=== PATIENT | female | born 1970 | race Caucasian/White ===

== ENCOUNTER 2025-09-21 13:41 | Outpatient (AMB) | payer OTHER, SELFPAY ==
--- OUTSIDE RECORDS SUMMARY | 2024-06-10 03:00 | XMS_ITS ---
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 Encounter Location Date Provider Diagnosis [facility] [employer] [address] [address] 06/10/2024 SERVANDO WHALEN Encounter for gynecological examination [...] Follow Up: 1 Year, Reason: Y early Oyster Culturist Exam Provider Name:SERVANDO Hadley, 10/06/2025 03:00:00 PM, [facility], [address], [place], [address], Progress Notes * LISY CAGEDOB:[birth year] (55 yo F)Acc No.[id number]:06/10/2024 PROGRESS NOTES Patient: LISY TAPIA Provider: Caitlyn WHALEN MD :1970 A ge:53 Y S ex:Female Date:06/10/2024 Address:[address] [place], [place] [id number] Pcp:KIMBALL MD Subjective: * Chief Complaints: * 1 . 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 S he has been in state of good health since her last exam. She has the following concerns: S he has received the [employer] Covid-19 vaccine and booster x 2. R [...] and strength training. * ROS: A nnual Oyster Culturist Exam ROS: Bowel habit changes d enies. [...] recurrent, mild, Rheumatoid arthritis, unspecified, COVID-19. * Oyster Culturist History: G ravida/ Para 0 /0. S [...] no acute distress, well developed, well nourished, animal caregiver present in room. HEAD: n ormocephalic, atraumatic. [...] * Follow Up: 1 Year (Reason: Yearly Oyster Culturist Exam) * Images: Billing Information: * Visit Code: [id number] Preventive Care Est Pt. Age 40-64. 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 She has been in state of good health since her last exam. She has the following concerns: She has received the [employer] Covid-19 vaccine and booster x 2. Relationship [...] General Examination GENERAL APPEARANCE: in no ac [place] distress, well developed, well nourished, animal caregiver present in room HEAD: normocephalic, atrau matic [...]
--- OUTSIDE RECORDS SUMMARY | 2024-08-05 04:20 | XMS_ITS ---
Author Organization [facility] [employer] Address [address] [address] Care Team Providers Care Fraud Investigator Name Role Phone MD TORRES HOWARD Primary Care Provider SERVANDO Portillo Unavailable [phone] REASON FOR VISIT Annual ELECTRICAL LINE SPLICER Physical Encounters Encounter Location Date Provider Diagnosis [facility] [address] [address] 08/05/2024 SERVANDO WHALEN Encounter for gynecological examination (general) (routine) without abnormal findings Z01.419 ; Encounter for screening mammogram for malignant neoplasm of breast Z12.31 and Encounter for screening for infections with a predominantly sexual mode of transmission Z11.3 Assessments Encounter Date Diagnosis (ICD Code) Assessment Notes Treatment Notes Treatment Clinical Notes Section Notes 08/05/2024 Encounter for gynecological examination (general) (routine) without abnormal findings (ICD-10 - Z01.419) During the visit, the following areas of concern were addressed: Discussed stopping cervical cancer screening as per ASCCP guidelines. Advised continued annual pelvic exams. Patient encouraged to increase her level of exercise. SBE technique encouraged/tau ght. Patient reminded when annual mammogram is due. Patient encouraged to keep colon screening up to date. 08/05/2024 Encounter for screening mammogram for malignant neoplasm of breast (ICD-10 - Z12.31) 08/05/2024 Encounter for screening for infections with a predominantly sexual mode of transmission (ICD-10 - Z11.3) Plan Of Treatment Treatment Notes Assessment Notes Encounter for gynecological examination (general) (routine) without abnormal findings During the visit, the following areas of concern were addressed: Discussed stopping cervical cancer screening as per ASCCP guidelines. Advised continued annual pelvic exams. Patient encouraged to increase her level of exercise. SBE technique encouraged/taught. Patient reminded when annual mammogram is due. Patient encouraged to keep colon screening up to date. Pending Test Test Name Order Date MM Digital Screening Mammogram 3D 2023 Next Appt Details Follow Up: 1 Year, Reason: Y early Bartender Exam Provider Name:SERVANDO Caitlyn Hadley, 10/06/2025 03:00:00 PM, [address], [address], [place], [address], Progress Notes * LISY CAGEDOB:[birth year] (55 yo F)Acc No.[id number]:08/05/2024 PROGRESS NOTES Patient: LISY TAPIA Provider: Caitlyn WHALEN MD :1970 A ge:54 Y S ex:Female Date:08/05/2024 Address:[address] [place] [address] , [id number] Pcp:KIMBALL MD Subjective: * Chief Complaints: * 1 . 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 S he has been in state of good health since her last exam. She has the following concerns: S he has received the [employer] Covid-19 vaccine and booster x 2. R [...] colonoscopy. The last colonoscopy was in 2019. T he patient does* exercise. She exercises x 6 days/week by running and strength training. * ROS: A nnual Bartender Exam ROS: Bowel habit changes d enies. [...] sychiatric: Denies A nxiety. * Medical History: Objective: * Vitals: * Examination: G eneral Examination: GENERAL APPEARANCE: i n no acute distress, well developed, well nourished, safety trainer present in room. HEAD: n ormocephalic, atraumatic. [...] pink without abnormal discharge, lesions or masses, cervix, uterus and ovaries are surgically absent. NEUROLOGIC: alert and oriented, gait normal. PSYCH: [...] * Follow Up: 1 Year (Reason: Yearly Bartender Exam) * Images: Billing Information: * Visit Code: [id number] Preventive Care Est Pt. Age 40-64. 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 She has been in state of good health since her last exam. She has the following concerns: She has received the [employer] Covid-19 vaccine and booster x 2. Relationship [...] General Examination GENERAL APPEARANCE: in no ac [place] distress, well developed, well nourished, safety trainer present in room HEAD: normocephalic, atrau matic [...] pink without abnormal discharge, lesions or masses, cervix, uterus and ovaries are surgically absent
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
[2025-09-21 14:10] VITALS: BP 80/70; PULSE 69; O2SAT 99; BMI 21.7
--- OUTSIDE RECORDS SUMMARY | 2025-09-21 16:33 | XMS_ITS | Clinical Summary ---
Author Organization [facility] Address [address] [place] [address] Phone Care Team Providers Care Companion Name Role Phone Sharad Alvarez MD Primary Care Provider [phone] Allergies Active Allergy Reactions Criticality Noted Date Comments Sulfamethoxazole-Trimethoprim 2019 Ciprofloxacin 07/05/2020 Medications buPROPion (WELLBUTRIN) 100 MG immediate release tablet Take 100 mg by mouth daily. Active ipratropium-al buteroL (COMBIVENT RESPIMAT) 20-100 mcg/actuation Mist Inhale 1 puff into the lungs once as needed. Active folic acid (FOLVITE) 1 MG tablet TAKE 1 TABLET BY MOUTH EVERY DAY 90 tablet 3 5 Active methotrexate 2.5 MG Oral tablet Take 10 tablets (25 mg total) by mouth every 7 days. 120 tablet 3 5 Active ENBREL SURECLICK 50 mg/mL (1 mL) PnIj INJECT 1 PEN SUBCUTANEOUSLY WEEKLY 4 mL 3 5 Active Active Problems No known active problems Encounters Date Type Department Care Team Description 07/23/2025 Refill [facility] Rheumatology [address], [address] Floor, [address] [place] [address] Annia Cortez MD Medication Refill from Last 3 Months Family History Medical History Relation Comments COPD Father Heart failure Father Rheumatoid arthritis Father Relation Status Comments Father Social History Tobacco Use Types Packs/Day Years Used Date Smoking Tobacco: Never Smokeless Tobacco: Never Alcohol Use Standard Drinks/Week Comments Yes 0 (1 standard drink = 0.6 oz pur e alcohol) Child or Family Care Answer Date Record ed Do you have problems with on e of the following making it difficult for you to work, study, or receive health care? No 03/20/2025 Education Answer Date Recorded Are you interested in help w ith more adult education (for example, completing high school, GED, job training, learning the Latvian language, technical skills, or developing parenting skills)? No 03/20/2025 Are you concerned about learning? Not on file 03/20/2025 No 03/20/2025 Yes 03/20/2025 Food Answer Date Recorded Within the past 6 months we worried whether our food would run out before we got money to buy more. Never True 03/20/2025 Within the past 6 months the food we bought just didn't last and we didn't have enough money to get more. Never True Residential Stability Answer Date Recor ded What is your housing situation today? I have joe sing 03/20/2025 How many times have you move d in the past 12 months? Zero (I did not move) 03/20/2025 Paying for Meds Answer Date Recorded Do you have trouble paying for medicines? No 03/20/2025 Paying Utility Bills Answer Date Record ed Do you have trouble paying your heating or elect ricity bill? No 03/20/2025 Transportation Answer Date Recorded Has the lack of transportati on kept you from medical appointments or from getting medications? No 01/28/2024 Unemployment Answer Date Recorded Are you currently unemployed or working on a part-time or temporary basis, and looking for work? No 10/02/2022 Digital Access Answer Date Recorded No 03/20/2025 Yes 03/20/2025 Do you have reliable internet access at home? Ye s 03/20/2025 Do you have a device (e.g., phone, tablet, computer) with a working camera? Yes 03/20/2025 Comments Unknown Sex and Gender Information Value Date Recorded Sex Assigned at Female 07/04/2020 7:21 PM EDT Legal Sex Female 10:42 AM EDT Gender Identity Female 07/04/2020 7:21 PM EDT Sexual Orientation Bisexual 07/04/2020 7: 21 PM EDT Last Filed Vital Signs Vital Sign Reading Time Taken Comments Blood Pressure 112/70 09/07/2024 11:04 AM EDT Pulse 70 09/07/2024 11:04 AM EDT Temperature 36 C (96.8 F) 09/07/2024 11:04 AM EDT Respiratory Rate - - Oxygen Saturation 100% 09/07/2024 11:04 AM EDT Inhaled Oxygen Concentration - - Weight 66.7 kg (147 lb) 09/07/2024 11:04 AM EDT Height 175.3 cm (5' 9 ) 09/07/2024 11:04 AM EDT Body Mass Index 21.71 09/07/2024 11:04 AM EDT Plan of Treatment Upcoming Encounters Date Type Department Care Team (Late st Contact Info) Description 02/07/2026 3:40 PM EDT Office Visit [facility] Rheumatology [address], [address] [place] [id number] Annia Cortez MD [address] [place] [id number] [email or web address] Health Maintenance Due Date Last Done Comments Adult Td,Tdap Booster 1972 LIPID PANEL 1972 DEPRESSION SCREENING 1984 HIV ONE-TIME SCREENING (18-65 YEARS) 1990 PAP SMEAR 1993 MAMMOGRAM 2012 COLOGUARD 2017 COLONOSCOPY 2017 COLORECTAL CANCER SCREENING 2017 FIT TEST 2017 FOBT 2017 SIGMOIDOSCOPY 2017 VIRTUAL COLONOSCOPY 2017 RSV VACCINE (1 - Risk 50-74 years 1-dose series) 2022 INFLUENZA VACCINE (#1) 2025 4, 08/20/2024, 09/01/2022, Additional history exists COVID-19 VACCINE ( season) 2025 09/01/2022, 05/17/2022, 07/08/2021, Additional history exists SMOKING STATUS SCREENING (Once After 26 Yrs) Completed 07/28/2020 HEPATITIS C SCREENING Completed 08/22/2020, 020 PNEUMOCOCCAL VACCINES (50+ years) Completed 06/06/2024, 08/13/2017 ZOSTER VACCINES Completed 09/03/2024, 02/2024, 06/06/2024 HEPATITIS A VACCINES Aged Out No long er eligible based on patient's age to complete this topic HIB VACCINES Aged Out No longer eligi ble based on patient's age to complete this topic MENINGOCOCCAL VACCINES (ACWY) Aged Out No longer eligible based on patient's age to complete this topic MENINGOCOCCAL VACCINES (B) Aged Out N o longer eligible based on patient's age to complete this topic Medical Devices Not on file Procedures Procedure Name Priority Date/Time Associated Diagnosis Comments OUTSIDE HEPATITIS C VIRUS SCREENING Routine 08/22/2020 from Last 3 Months or Most Recently Relevant to Health Maintenance Results * Outside Hepatitis C Virus Screening (08/22/2020) [facility] Hepatitis C Screening - External Neg Comment:Done at [facility] Ref [facility]rence [facility] us Historical Provider LAB BLOOD ORDERABLES Tiffanie l Result from Last 3 Months or Most Recently Relevant to Health Maintenance Insurance [facility] Care Teams Companion Relationship Specialty Start Date End Date Sharad Alvarez MD [address] [place] [id number] [email or web address] PCP - General Internal Medicine 04/21/20 Additional Source Comments The information contained in this document represents components of the legal health record. It is not the complete legal health record.[facility]
--- OUTSIDE RECORDS SUMMARY | 2025-09-21 16:33 | XMS_ITS | Patient Health Record ---
Author Organization [facility] Address [address] [place] [address] Care Team Providers Care Child Support Specialist Name Role Phone MD TORRES HOWARD Primary Care Provider SERVANDO Portillo Unavailable [phone] Allergies Allergen (clinical drug ingredient) Drug/Non Drug Allergy documented on EMR Reaction Allergy Type Onset Date Status sulfamethoxazole / trimethoprim Bactrim Unknown Drug Allergy Active ciprofloxacin Cipro Unknown Drug Allergy Act jackie Reason For Referral No Information Medications Medication SIG (Take, Route, Frequency, Duration) Notes Start Date End Date Status Enbrel 50 MG/ML 1 ml Subcutaneous; Duration: 30 day(s) 05/29/2022 Active Methotrexate 2.5 MG as directed Orally 8/week Active Vitamin D Not-Taking Combivent Active Folic Acid 1 MG 1 tablet Orally bid Active Estradiol 1 MG 1 tablet Orally Once a day; Duration: 90 days 05/29/2022 Active Multivitamin Active Wellbutrin XL 150 MG 1 tablet in the mor ministerio Orally Once a day Active Social History Tobacco Use: Social History Observation Description Date Details (start date - stop date) Never Smoker NA - NA Tobacco Use/Smoking Question Answer Notes Are you a nonsmoker Alcohol Screen (Audit-C) Question Answer Notes Did you have a drink containing alcohol in the p ast year? No Points 0 Interpretation Negative Problems Problem Type SNOMED Code ICD Code Onset Dates Problem Status W/U Status Risk Notes Problem Menopause (147518589) Menopausal and female climacteric states (N95.1) Active confirmed Problem Uncomplicated asthma (disorder) (857266689) Unspecified asthma, uncomplicated (J45.909) Active confirmed Problem Rheumatoid arthritis (46255683) Rheumatoid arthritis, unspecified (M06.9) Active confirmed Problem COVID-19 (960562452) COVID-19 (U07.1) Active confirmed Vital Signs Temperature 97.3 degrees Fahrenheit 10/01/2024 Blood pressure diastolic 60 mm Hg 10/01/2024 Height 69 in 10/01/2024 Blood pressure systolic 100 mm Hg 10/01/2024 Weight 149 lbs 10/01/2024 BMI 22 kg/m2 10/01/2024 Encounters Encounter Location Date Provider Diagnosis [address] [place] [address] 10/01/2024 SERVANDO WHALEN Encounter for gynecological examination (general) (routine) without abnormal findings Z01.419 ; Encounter for screening mammogram for malignant neoplasm of breast Z12.31 ; Menopausal and female climacteric states N95.1 and Mastodynia N64.4 Assessments Encounter Date Diagnosis (ICD Code) Assessment Notes Treatment Notes Treatment Clinical Notes Section Notes 10/01/2024 Encounter for gynecological examination (general) (routine) without [...] to keep colon screening up to date. 10/01/2024 Encounter for screening mammogram for malignant neoplasm of breast (ICD-10 - Z12.31) 10/01/2024 Menopausal and female climacteric states (ICD-10 - N95.1) 10/01/2024 Mastodynia (ICD-10 - N64.4) Plan Of Treatment Pending Test Test Name Order Date MM Digital Mammo Screening 09/13/2024 MM Digital Screen Mammo Unilat Right Diagnostic Left Breast Mammo/US 10/01/20 24 MM Digital Screening Mammogram 3D 2021 MM Digital Screening Mammogram 3D 2022 MM Digital Screening Mammogram 3D 2023 MM Digital Screening Mammogram 3D 03/29/ 2021 MM Digital Screening Mammogram 3D 2020 DIAGNOSTIC BILATERAL MAMMOGRAM, W/LT LINO AST ULTRASOUND 10/01/2024 Next Appt Details Provider Name:SERVANDO DEE Leonie, 10/06/2025 03:00:00 PM, [address], [address], [place], [address], Insurance Providers Payer Name Payer Address Payer Phone Subscriber Number Group Number Insured Name Patient Relationship to Insured Coverage Start Date Coverage End Date [facility] [address] [place] [address] [id number] LISY CAGE Self - patient is the insured 3 Medical (General) History Medical History History ICD Code Unspecified asthma, uncomplicated J45.90 9 Major depressive disorder, recurrent, mi ld F33.0 Rheumatoid arthritis, unspecified M06.9 COVID-19 U07.1 Surgical History Surgery Date(Month/Year) MYOMECTOMY SUPRACERVICAL HYST 2010 BILATERAL SALPINGO OOPHORERC DONAVON with TRACHELECTOMY (not due to dysplasia) 2016 APPENDECTOMY 2017 Hospitalization History Reason Date(Month/Year) Leukopenia 04/2020
--- OUTSIDE RECORDS SUMMARY | 2025-09-21 16:33 | XMS_ITS | Clinical Summary ---
Author Organization [facility] [address] [facility] Address [address] [place] [address] Phone Care Team Providers Care Dry House Operator Name Role Phone Sharad Alvarez MD Primary Care Provider [phone] Allergies Active Allergy Reactions Criticality Noted Date Comments Ciprofloxacin 07/05/2020 Sulfamethoxazole-Trimethoprim Anaphylaxis,Swelling High 09/13/2015 Medications buPROPion XL (WELLBUTRIN XL) 300 mg 24 hr tablet Take 1 tablet (300 mg total) by mouth 1 (one) time each day. 12/17/2024 Active estradioL (ESTRACE) 1 mg tablet Take 1 tablet (1 mg total) by mouth 1 (one) time each day. for 90 days 10/20/2024 Active EnbreL SureClick 50 mg/mL (1 mL) injection pen Inject 1 mL (50 mg total) under the skin every 7 (seven) days. 09/10/2024 Active folic acid (FOLVITE) 1 mg tablet Take 1 tablet (1,000 mcg total) by mouth 1 (one) time each day. Active Combivent Respimat 20-100 mcg/actuation inhaler INHALE 1 PUFF BY MOUTH 4 TIMES DAILY NEEDED Active methotrexate 2.5 mg tablet TAKE 8 TABLETS BY MOUTH EVERY 7 DAYS. 11/20/2024 Active Active Problems Problem Noted Date Diagnosed Date Asthma 01/12/2025 Arthritis 01/12/2025 Surgical History Surgery Date Site/Laterality Comments APPENDECTOMY COLONOSCOPY HYSTERECTOMY MYOMECTOMY Medical History Medical History Date Comments Asthma Depression Rheumatoid arthritis (CMS/HCC V24, CMS/HCC V28) IBS (irritable bowel syndrome) Social History Tobacco Use Types Packs/Day Years Used Date Smoking Tobacco: Never Smokeless Tobacco: Never Tobacco Cessation:Counseling Given: Not Answered Alcohol Use Standard Drinks/Week Comments Yes 0 (1 standard drink = 0.6 oz pur e alcohol) Interpersonal Safety Answer Date Record ed Physical Abuse Unrecognized value 01/12/2025 Verbal Abuse Unrecognized value 01/12/2025 Comments No Sex and Gender Information Value Date Recorded Sex Assigned at Female 01/11/2025 4:07 PM EST Legal Sex Female 11:33 PM EST Gender Identity Female 01/11/2025 4:07 PM EST Sexual Orientation Lesbian or Helms 01/11/2025 4: 07 PM EST Obstetrics History Last Filed Vital Signs Vital Sign Reading Time Taken Comments Blood Pressure 88/58 01/12/2025 9:29 AM EST Pulse 64 01/12/2025 9:29 AM EST Temperature 36.4 C (97.6 F) 01/12/2025 9:09 AM EST Respiratory Rate 16 01/12/2025 9:29 AM EST Oxygen Saturation 100% 01/12/2025 9:29 AM EST Inhaled Oxygen Concentration - - Weight 65.3 kg (144 lb) 01/12/2025 7:48 AM EST Height 179.8 cm (5' 10.8 ) 01/12/2025 7:48 AM ES T Body Mass Index 20.2 01/12/2025 7:48 AM EST Plan of Treatment Health Maintenance Due Date Last Done Comments Breast Cancer Screening 1972 DTaP,Tdap,and Td Vaccines (1 - Tdap) 1991 Hepatitis B Vaccines (1 of 3 - 19+ 3-dose series) 1991 Cervical Cancer Screening: Pap Smear 1993 RSV Immunization Adult Patients (1 - Risk 50-74 years 1-dose series) 2022 HIV Screening 10/20/2022 Hepatitis C Screening 10/20/2022 Social Influencers of Health Screening 10/20/2022 Depression Screening 11/17/2024 COVID-19 Vaccine ( - season) 2025 09/01/2022, 05/17/2022, 07/08/2021, Additional history exists Influenza Vaccine (#1) 2025 4, 08/20/2024, 09/01/2022, Additional history exists Colorectal Cancer Screening: Colonoscopy 01/12/2035 01/12/2025 Pneumococcal Vaccine: 50+ Years Completed 06/06/2024, 08/13/2017 Zoster Vaccines Completed 09/03/2024, 02/2024, 06/06/2024 HIB Vaccines Aged Out No longer eligi ble based on patient's age to complete this topic HPV Vaccines Aged Out No longer eligi ble based on patient's age to complete this topic Hepatitis A Vaccines Aged Out No long er eligible based on patient's age to complete this topic IPV Vaccines Aged Out No longer eligi ble based on patient's age to complete this topic MMR Vaccines Aged Out No longer eligi ble based on patient's age to complete this topic Meningococcal ACWY Vaccine Aged Out N o longer eligible based on patient's age to complete this topic Meningococcal B Vaccine Aged Out No l onger eligible based on patient's age to complete this topic RSV Immunization Patients Under 20 months Aged Out No longer eligible based on patient's age to complete this topic Varicella Vaccines Aged Out No longer eligible based on patient's age to complete this topic Procedures Procedure Name Priority Date/Time Associated Diagnosis Comments COLONOSCOPY Routine 01/12/2025 9:08 AM EST Personal history of other colon polyps from Last 3 Months or Most Recently Relevant to Health Maintenance Results * COLONOSCOPY Anesthesia - MAC; [facility] ENDOSCOPY (01/12/2025 9:08 AM EST) Anatomical Region Laterality Modality Endoscopy 01/12/2025 8:21 AM EST Impressions 01/12/2025 9:09 AM EST - The examined portion of the ileum was normal. - The entire examined colon is normal. - Biopsies were taken with a cold forceps for histology in the entire colon. Recommendation: - Patient has a contact number available for emergencies. The signs and symptoms of potential delayed complications were discussed with the patient. Return to normal activities tomorrow. Written discharge instructions were provided to the patient. - Resume previous diet. - Continue present medications. - Await pathology results. - Repeat colonoscopy in 5 years for surveillance. Narrative 01/12/2025 9:[address] [facility] GI Patient Name: Lisy Hopkins Procedure Date: 01/12/2025 8:21 AM Date of : 1970 Age: 54 Room: ROOM 16 Gender: Female Note Status: Finalized Attending MD: Stevenson Mane MD, Procedure Date No Time: 01/12/2025 Procedure: Colonoscopy Indications: Follow-up of Crohn's disease of the colon Providers: Stevenson Mane MD Referring MD: Stevenson Mane MD Medicines: Monitored Anesthesia Care Complications: No immediate complications. Estimated Blood Loss: Estimated blood loss was minimal. Procedure: After I obtained informed consent, the scope was passed under direct vision. Throughout the procedure, the patient's blood pressure, pulse, and oxygen saturations were monitored continuously.The Colonoscope was introduced through the anus and advanced to the cecum, identified by appendiceal orifice and ileocecal valve. The colonoscopy was performed without difficulty. The patient tolerated the procedure well. The quality of the bowel preparation was adequate. The Olympus Pediatric Colonoscope was introduced through the anus and advanced to the terminal ileum, with identification of the appendiceal orifice and IC valve. Findings: The terminal ileum appeared normal. The entire examined colon appeared normal. Biopsies were taken with a cold forceps in the entire colon for histology. MD Stevenson Neves MD 01/12/2025 9:08:58 AM This report has been signed electronically.Stevenson Mane MD Number of Addenda: 0 Note Initiated On: 01/12/2025 8:21 AM Scope In: Scope Out: Endoscopy Department at [facility] - [address] [place] [id number] Procedure Note Stevenson Mane MD - 01/12/2025 [facility] GI Patient Name: Lisy Hopkins Procedure Date: 01/12/2025 8:21 AM Date of : 1970 Age: 54 Room: ROOM 16 Gender: Female Note Status: Finalized Attending MD: Stevenson Mane MD, Procedure Date No Time: 01/12/2025 Procedure: Colonoscopy Indications: Follow-up of Crohn's disease of the colon Providers: Stevenson Mane MD Referring MD: Stevenson Mane MD Medicines: Monitored Anesthesia Care Complications: No immediate complications. Estimated Blood Loss: Estimated blood loss was minimal. Procedure: After I obtained informed consent, the scope was passed under direct vision. Throughout theprocedure, the patient's blood pressure, pulse, and oxygen saturations were monitored continuously.The Colonoscope was introduced through the anus and advanced to the cecum, identified by appendiceal orifice and ileocecal valve. The colonoscopy was performed without difficulty. The patient tolerated the procedure well. The quality of the bowel preparation was adequate. The Olympus Pediatric Colonoscope was introduced through the anus and advanced to the terminal ileum, with identificationof the appendiceal orifice and IC valve. Findings: The terminal ileum appeared normal. The entire examined colon appeared normal. Biopsies were taken with a cold forceps in theentire colon for histology. MD Stevenson Neves MD 01/12/2025 9:08:58 AM This report has been signed electronically.Stevenson Mane MD Number of Addenda: 0 Note Initiated On: 01/12/2025 8:21 AM Scope In: Scope Out: Endoscopy Department at [facility] - [address] [place] [phone] IMPRESSION: - The examined portion of the ileum was normal. - The entire examined colon is normal. - Biopsies were taken with a cold forceps for histology in the entire colon. Recommendation: - Patient has a contact number available for emergencies. The signs and symptoms of potential delayed complications were discussed with thepatient. Return to normal activities tomorrow. Written discharge instructions were provided to thepatient. - Resume previous diet. - Continue present medications. - Await pathology results. - Repeat colonoscopy in 5 years for surveillance. Stevenson Mane MD GI~PROCEDURE ORDERABLES Final R esult from Last 3 Months or Most Recently Relevant to Health Maintenance Insurance [facility] Care Teams Dry House Operator Relationship Specialty Start Date End Date Sharad Alvarez MD [address] [place] [address] PCP - General Internal Medicine 01/11/25
== END 2025-09-21 15:06 | disposition home or self-care (01) ==
LOC: HO.HSM 13:41
PROVIDERS: PCP Physician Assistant Medical; Visit Provider Nurse Practitioner
DX: R51.9 Headache, unspecified (principal); H53.8 Other visual disturbances
CPT/HCPCS: 99204

== ENCOUNTER 2025-11-02 14:41 | Outpatient (REF) | payer OTHER, SELFPAY ==
--- OUTSIDE RECORDS SUMMARY | 2024-06-10 03:00 | XMS_ITS ---
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 Physical Encounters Encounter Location Date Provider Diagnosis [facility] [address] [address] 06/10/2024 SERVANDO WHALEN Encounter for gynecological examination (general) (routine) without abnormal findings Z01.419 ; Encounter for screening mammogram for malignant neoplasm of breast Z12.31 and Encounter for screening for infections with a predominantly sexual mode of transmission Z11.3 Assessments Encounter Date Diagnosis (ICD Code) Assessment Notes Treatment Notes Treatment Clinical Notes Section Notes 06/10/2024 Encounter for gynecological examination (general) (routine) without abnormal findings (ICD-10 - Z01.419) During the visit, the following areas of concern were addressed: Discussed cervical cancer screening with either cytology alone every 3 years or high risk HPV co-testing every 5 years as per ASCCP guidelines. Advised continued annual pelvic exams. Patient encouraged to increase her level of exercise. SBE technique encouraged/tau ght. Patient reminded when annual mammogram is due. Patient encouraged to keep colon screening up to date. 06/10/2024 Encounter for screening mammogram for malignant neoplasm of breast (ICD-10 - Z12.31) 06/10/2024 Encounter for screening for infections with a predominantly sexual mode of transmission (ICD-10 - Z11.3) Plan Of Treatment Treatment Notes Assessment Notes Encounter for gynecological examination (general) (routine) without abnormal findings During the visit, the following areas of concern were addressed: Discussed cervical cancer screening with either cytology alone every 3 years or high risk HPV co-testing every 5 years as per ASCCP guidelines. Advised continued annual pelvic exams. Patient encouraged to increase her level of exercise. SBE technique encouraged/taught. Patient reminded when annual mammogram is due. Patient encouraged to keep colon screening up to date. Pending Test Test Name Order Date MM Digital Screening Mammogram 3D 2023 Next Appt Details Follow Up: 1 Year, Reason: Y early Network Pricing Consultant Exam Provider Name:SERVANDO Hadley, 12/01/2025 03:30:00 PM, [employer] [facility], [address], [place], [address], Progress Notes * LISY CAGEDOB:[birth year] (55 yo F)Acc No.[id number]:06/10/2024 PROGRESS NOTES Patient: LISY TAPIA Provider: Caitlyn WHALEN MD :1970 A ge:53 Y S ex:Female Date:06/10/2024 Address:[address] [place], [place] [id number] Pcp:KIMBALL MD Subjective: * Chief Complaints: * 1 . 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 S he has been in state of good health since her last exam. She has the following concerns: S he has received the [employer] Covid-19 vaccine and booster x 2. R elationship status: * for 6.5 years. She is sexually active. Sexual partner(s): female. She does not wish to have STI testing. S he does *not report vaginal dryness. She does *not have hot flashes/night sweats. T he patient has never had an abnormal pap smear. Her most recent pap smear was 10/2016. Paps are no longer indicated. S he has not been diagnosed with breast cancer. She does have a family history of breast cancer - PGM. Her last mammogram was 11/21/21. S he does *not have a family history of colon cancer. She a has had a colonoscopy. The last colonoscopy was in 2018. T he patient does* exercise. She exercises x 6 days/week by running and strength training. * ROS: A nnual Network Pricing Consultant Exam ROS: Bowel habit changes d enies. B ladder symptoms d enies. V aginal discharge, unusual d enies. V aginal itch or odor d enies. w eight or appetite changes d enies. C hest pains, SOB d enies. d epression d enies.? B reast: Denies B reast lump. D enies N ipple discharge.? H ematology: Denies S wollen glands. S kin: Patient denies c hanging moles. P sychiatric: Denies A nxiety. * Medical History: U nspecified asthma, uncomplicated, Major depressive disorder, recurrent, mild, Rheumatoid arthritis, unspecified, COVID-19. * Network Pricing Consultant History: G ravida/ Para 0 /0. S exual activity c urrently sexually active, with women. L ast Pap Smear: 1 12/2015. M ammogram: 50-75% density, 06/26/20 50-75% density, 12/10/18 50-75% density, 12/2016. A bnormal Pap Smear: N ONE. L MP and menses h ysterectomy - due to fibroids (no cervical dysplasia). H istory of STD's: n one. C olonoscopy 2006. * Hep B Vac V ACCINATED. * OB History: T otal pregnancies G 0 P0000. * Allergies: B actrim, Cipro. Objective: * Vitals: * Examination: G eneral Examination: GENERAL APPEARANCE: i n no acute distress, well developed, well nourished, enterer present in room. HEAD: n ormocephalic, atraumatic. NECK/THYROID: n luisana supple, full range of motion, thyroid normal. LYMPH NODES: n o axillary or supraclavicular adenopathy.? SKIN: normal, good turgor, no rashes, no suspicious lesions. BREASTS: normal, no dimpling, no discharge, no drainage, no masses palpable bilaterally, nontender. ABDOMEN: soft, non-tender, non distended without masses or hepatosplenomegay. RECTAL: normal tone, no masses palpable. BACK: no costovertebral angle tenderness. FEMALE GENITOURINARY: V ulva without lesions or masses, vagina pink without abnormal discharge, lesions or masses, cervix and uterus are surgically absent, ovaries are not palpable. NEUROLOGIC: alert and oriented, gait normal. PSYCH: alert, oriented, cognitive function intact, cooperative with exam, good eye contact, mood/affect full range, speech clear. Assessment: * Assessment: 1. E ncounter for gynecological examination (general) (routine) without abnormal findings - Z01.419 (Primary) 2 . E ncounter for screening mammogram for malignant neoplasm of breast - Z12.31 3 . E ncounter for screening for infections with a predominantly sexual mode of transmission - Z11.3 Plan: * Treatment: 2. E ncounter for screening mammogram for malignant neoplasm of breast I maging: MM Digital Screening Mammogram 3D * Follow Up: 1 Year (Reason: Yearly Network Pricing Consultant Exam) * Images: Billing Information: * Visit Code: 77786 Preventive Care Est Pt. Age 40-64. 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 She has been in state of good health since her last exam. She has the following concerns: She has received the [employer] Covid-19 vaccine and booster x 2. Relationship status: * for 6.5 years. She is sexually active. Sexual partner(s): female. She does not wish to have STI testing. She does *not report vaginal dryness. She does *not have hot flashes/night sweats. The patient has never had an abnormal pap smear. Her most recent pap smear was 10/2016. Paps are no longer indicated. She has not been diagnosed with breast cancer. She does have a family history of breast cancer - PGM. Her last mammogram was 11/21/21. She does *not have a family history of colon cancer. She a has had a colonoscopy. The last colonoscopy was in 2019. The patient does* exercise. She exercises x 6 days/week by running and strength training. Examination Category Sub-Category Detail Notes Category Not es General Examination GENERAL APPEARANCE: in no ac [place] distress, well developed, well nourished, enterer present in room HEAD: normocephalic, atrau matic NECK/THYROID: neck supple, full ra nge of motion, thyroid normal ABDOMEN: soft, non-tender, no n distended without masses or hepatosplenomegay NEUROLOGIC: alert and oriented, gait normal SKIN: normal, good turgor, no rashes, no suspicious lesions BACK: no costovertebral an gle tenderness BREASTS: normal, no dimpling, no discharge, no drainage, no masses palpable bilaterally, nontender LYMPH NODES: no axillary or supra clavicular adenopathy RECTAL: normal tone, no mass es palpable PSYCH: alert, oriented, cog nitive function intact, cooperative with exam, good eye contact, mood/affect full range, speech clear FEMALE GENITOURINARY: Vulva without lesi ons or masses, vagina pink without abnormal discharge, lesions or masses, cervix and uterus are surgically absent, ovaries are not palpable
--- OUTSIDE RECORDS SUMMARY | 2024-08-05 04:20 | XMS_ITS ---
Author Organization [facility] Address [address] [address] Care Team Providers Care Public Information Coordinator Name Role Phone MD TORRES HOWARD Primary Care Provider SERVANDO Portillo Unavailable [phone] REASON FOR VISIT Annual TUBE WRAPPER Physical Encounters Encounter Location Date Provider Diagnosis [facility] [address] [address] 08/05/2024 SERVANDO WHALEN Encounter for gynecological examination [...] Follow Up: 1 Year, Reason: Y early Pool Coordinator Exam Provider Name:SERVANDO Caitlyn Hadley, 12/01/2025 03:30:00 PM, [address], [address], [place], [address], Progress Notes * LISY CAGEDOB:[birth year] (55 yo F)Acc No.[id number]:08/05/2024 PROGRESS NOTES Patient: LISY TAPIA Provider: Caitlyn WHALEN MD :1970 A ge:54 Y S ex:Female Date:08/05/2024 Address:[address] [place] [address] , [facility] Pcp:KIMBALL MD Subjective: * Chief Complaints: * 1 . 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 S he has been in state of good health since her last exam. She has the following concerns: S he has received the [employer] Covid-19 vaccine and booster x 2. R [...] and strength training. * ROS: A nnual Pool Coordinator Exam ROS: Bowel habit changes d enies. [...] no acute distress, well developed, well nourished, sanding machine tender present in room. HEAD: n ormocephalic, atraumatic. [...] * Follow Up: 1 Year (Reason: Yearly Pool Coordinator Exam) * Images: Billing Information: * Visit Code: [id number] Preventive Care Est Pt. Age 40-64. 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 She has been in state of good health since her last exam. She has the following concerns: She has received the [employer] Covid-19 vaccine and booster x 2. Relationship [...] ac [place] distress, well developed, well nourished, sanding machine tender present in room HEAD: normocephalic, atrau matic [...]
--- OUTSIDE RECORDS SUMMARY | 2025-10-06 10:00 | XMS_ITS ---
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 Encounters Encounter Location Date Provider Diagnosis [facility] [address] [address] 10/06/2025 SERVANDO WHALEN Encounter for gynecological examination (general) (routine) without abnormal findings Z01.419 ; Encounter for screening mammogram for malignant neoplasm of breast Z12.31 ; Encounter for screening for infections with a predominantly sexual mode of transmission Z11.3 and Menopausal and female climacteric states N95.1 Assessments Encounter Date Diagnosis (ICD Code) Assessment Notes Treatment Notes Treatment Clinical Notes Section Notes 10/06/2025 Encounter for gynecological examination (general) (routine) without [...] to keep colon screening up to date. 10/06/2025 Encounter for screening mammogram for malignant neoplasm of breast (ICD-10 - Z12.31) 10/06/2025 Encounter for screening for infections with a predominantly sexual mode of transmission (ICD-10 - Z11.3) 10/06/2025 Menopausal and female climacteric states (ICD-10 - N95.1) Plan Of Treatment Treatment Notes Assessment Notes [...] Order Date MM Digital Screening Mammogram 3D 2024 Next Appt Details Follow Up: 1 Year, Reason: Y early Public Health Technician Exam Provider Name:SERVANDOKaruna Hadley, 12/01/2025 03:30:00 PM, [email or web address], [address], [place], [address], Progress Notes * LISY CAGEDOB:[birth year] (55 yo F)Acc No.[id number]:10/06/2025 PROGRESS NOTES Patient: LISY TAPIA Provider: Caitlyn WHALEN MD :1970 A ge:55 Y S ex:Female Date:10/06/2025 Address:[address] [place], [place] [id number] Pcp:KIMBALL MD Subjective: * Chief Complaints: * 1 . Annual OFFAL ROLLER Physical. 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 S he has been in state of good health since her last exam. She has the following concerns: S he has received the Pfizer Covid-19 vaccine and booster x 2. R elationship status: * for 8 years. She is sexually active. Sexual partner(s): female. She does not wish to have STI testing. S he does *not report vaginal dryness. She does *not have hot flashes/night sweats - she uses Estradiol daily and would* like a refill. T he patient has never had an abnormal pap smear. Her most recent pap smear was 10/2016. Paps are no longer indicated. S he has not been diagnosed with breast cancer. She does have a family history of breast cancer - PGM. Her last mammogram was 10/20/24, with a left breast ultrasound due to pain. The breast tissue is heterogeneously dense, which may obscure small masses. The Roselyn risk is 10%, so no supplemental screening is indicated. S he does *not have a family history of colon cancer. She a has had a colonoscopy. The last colonoscopy was 01/12/25. Next due for follow up . She *exercises about 5 days per week by strength training strength training. * ROS: A nnual Public Health Technician Exam ROS: Bowel habit changes d enies. [...] no acute distress, well developed, well nourished, powerhouse engineer present in room. HEAD: n ormocephalic, atraumatic. [...] predominantly sexual mode of transmission - Z11.3 4 . M enopausal and female climacteric states - N95.1 Plan: * Treatment: 2. E ncounter for screening mammogram for malignant neoplasm of breast I maging: MM Digital Screening Mammogram 3D * Follow Up: 1 Year (Reason: Yearly Public Health Technician Exam) * Images: Billing Information: * Visit Code: 44534 Preventive Care Est Pt. Age 40-64. 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 She has been in state of good health since her last exam. She has the following concerns: She has received the [employer] Covid-19 vaccine and booster x 2. Relationship status: * for 8 years. She is sexually active. Sexual partner(s): female. She does not wish to have STI testing. She does *not report vaginal dryness. She does *not have hot flashes/night sweats - she uses Estradiol daily and would* like a refill. The patient has never had an abnormal pap smear. Her most recent pap smear was 10/2016. Paps are no longer indicated. She has not been diagnosed with breast cancer. She does have a family history of breast cancer - PGM. Her last mammogram was 10/20/24, with a left breast ultrasound due to pain. The breast tissue is heterogeneously dense, which may obscure small masses. The Roselyn risk is 10%, so no supplemental screening is indicated. She does *not have a family history of colon cancer. She a has had a colonoscopy. The last colonoscopy was 01/12/25. Next due for follow up . She *exercises about 5 days per week by strength training strength training. Examination Category Sub-Category Detail Notes Category Not es General Examination GENERAL APPEARANCE: in no ac agua caliente distress, well developed, well nourished, powerhouse engineer present in room HEAD: normocephalic, atrau matic [...]
--- NOTE | ~2025-11-02 | CT_ITS ---
EXAMINATION: CT ANGIOGRAM HEAD CLINICAL INFORMATION: Headache, unspecified. 55-year-old female. COMPARISON: None available. TECHNIQUE: Noncontrast axial imaging of the head was performed. This was followed by test bolus sequences and head intravenous bolus administration 75 mL of Omnipaque 350. Helical imaging was performed in the axial plane from the skull base to the skull vertex. The data was processed at the sleep lab technologist's workstation for generation of MIP sequences. Angled MIPs and volume rendered reformatted images were also generated at an offline 3D workstation. Stenoses are assessed in accordance with NASCET criteria unless otherwise indicated. This CT examination was performed using dose optimization techniques as appropriate, variously including the following: *Automated exposure control *Adjustment of mA and/or kV according to patient size (this includes techniques or standardized protocols for targeted exams where dose is matched to indication/reason for exam; i.e. extremities or head) *Use of iterative reconstruction technique FINDINGS: NONCONTRAST HEAD CT: There is no evidence of intracranial hemorrhage or extra-axial fluid collection. There is no mass effect, or edema. There appears to be some loss of barrow-white differentiation in the right anterior temporal lobe (series 5, images 9, 10, and 11). Unknown if this is artifact or an actual finding. No associated mass effect suggests this is likely artifactual. There is otherwise no CT evidence of acute territorial infarct. Ventricles, sulci, and cisterns are normal in size and configuration for patient age. No hydrocephalus. No midline shift. Globes and orbital contents image normally. No extracranial soft tissue abnormalities. The paranasal sinuses, mastoid air cells, and tympanic cavities are normally aerated. No suspicious bony abnormalities. CTA OF THE BRAIN: -INTRACRANIAL INTERNAL CAROTID ARTERIES: No focal stenosis or occlusion. -RIGHT ANTERIOR CEREBRAL ARTERY: Normal A1 segment.. Normal arborization of the distal segments. -LEFT ANTERIOR CEREBRAL ARTERY: Normal A1 segment.. Normal arborization of the distal segments. -ANTERIOR COMMUNICATING ARTERY: Normal. -RIGHT MIDDLE CEREBRAL ARTERY: Normal M1 segment of the MCA without focal stenosis or occlusion. Normal bifurcation. Normal arborization of the distal segments. -LEFT MIDDLE CEREBRAL ARTERY: Normal M1 segment of the MCA without focal stenosis or occlusion. Normal bifurcation. Normal arborization of the distal segments. -RIGHT VERTEBRAL ARTERY V4: Normal in course and caliber. There is an AICA/PICA. -LEFT VERTEBRAL ARTERY V4: Normal in course and caliber. There is an AICA/PICA. -BASILAR ARTERY: Normal without focal stenosis or occlusion. Normal appearance of the proximal superior cerebellar arteries. Normal basilar tip. -RIGHT POSTERIOR CEREBRAL ARTERY: Normal P1 segment. Normal opacification of the distal HEAD [employer] segments. -LEFT POSTERIOR CEREBRAL ARTERY: Normal P1 segment. Normal opacification of the distal HEAD FIELD H[employer]ACH segments. -POSTERIOR COMMUNICATING ARTERIES: Normal opacification of the superior sagittal, straight, transverse, and sigmoid sinuses. No venous thrombosis. CT/CT angio head IMPRESSION: NONCONTRAST HEAD CT: 1. There appears to be some loss of barrow-white integrity in the right anterior temporal lobe as detailed above. This is felt to most likely represent artifact as opposed to true cytotoxic edema. There is also no associated mass effect. MRI recommended to further elucidate this possible finding. 2. There is otherwise no acute intracranial abnormality. CTA HEAD: 1. There is no evidence of significant stenosis, occlusion, dissection, or aneurysm of the major intracranial arterial vasculature. 2. The major cortical and dural venous sinuses are patent. Above findings communicated to Liliana Yo NP at 4:05 PM, 11/02/2025 via secure text. Electronically signed by: Jd Leggett MD 11/02/2025 04:[address] [facility] [place]
[2025-11-02] MEDS: iohexoL 350 MG/ML 100 ML INFUS..BTL IV (15:38)
--- OUTSIDE RECORDS SUMMARY | 2025-11-02 19:37 | XMS_ITS | Clinical Summary ---
Author Organization [facility] [address] [facility] Address [address] [place] [address] Phone Care Team Providers Care Development Trainer Name Role Phone Sharad Alvarez MD Primary Care Provider [phone] Allergies Active Allergy Reactions Criticality Noted Date [...] or Helms 01/11/2025 4: 07 PM EST Last Filed Vital Signs Vital Sign Reading [...] 10/20/2022 Depression Screening 11/17/2024 COVID-19 Vaccine ( season) 2025 09/01/2022, 05/17/2022, 07/08/2021, Additional history exists Influenza Vaccine (#1) 2025 4, 08/20/2024, 09/01/2022, Additional history exists Colorectal Cancer Screening: Colonoscopy 01/12/2035 01/12/2025 Pneumococcal Vaccine: 50+ Years Completed 06/06/2024, 08/13/2017 Zoster Vaccines Completed 09/03/2024, 1002/2024, 06/06/2024 HIB Vaccines Aged Out No longer [...] Health Maintenance Results * COLONOSCOPY Anesthesia - [facility] [facility] ENDOSCOPY (01/12/2025 9:08 AM EST) Anatomical [...] for surveillance. Narrative 01/12/2025 9:09 AM EST [facility] GI Patient Name: Lisy Hopkins Procedure Date: [...] Scope In: Scope Out: Endoscopy Department at [facility] - [address] [place] [phone] Procedure Note Stevenson Mane MD - 01/12/2025 [facility] GI Patient Name: Lisy Hopkins Procedure Date: [...] Scope In: Scope Out: Endoscopy Department at [facility] - [address] [place] [phone] IMPRESSION: - The examined portion of the [...] Most Recently Relevant to Health Maintenance Insurance [id number] [place] [address] Care Teams Development Trainer Relationship Specialty Start Date End Date Sharad Alvarez MD [address] [place] [address] PCP - General Internal Medicine 01/11/25
--- OUTSIDE RECORDS SUMMARY | 2025-11-02 19:37 | XMS_ITS | Patient Health Record ---
Author Organization [facility] [employer] Address [address] [facility] [address] [place] [address] Care Team Providers Care Business Excellence Leader Name Role Phone MD TORRES HOWARD Primary Care Provider SERVANDO Portillo Unavailable [phone] Allergies Allergen (clinical drug ingredient) Drug/Non Drug [...] Status W/U Status Risk Notes Problem Menopause (809293044) Menopausal and female climacteric states (N95.1) Active confirmed Problem Uncomplicated asthma (disorder) (227751731) Unspecified asthma, uncomplicated (J45.909) Active confirmed Problem Rheumatoid arthritis (97910077) Rheumatoid arthritis, unspecified (M06.9) Active confirmed Problem COVID-19 (332443348) COVID-19 (U07.1) Active confirmed Plan Of Treatment Pending Test Test Name Order Date MM Digital Mammo Screening 09/13/2024 MM Digital Screen Mammo Unilat Right Diagnostic Left Breast Mammo/US 10/01/20 24 MM Digital Screening Mammogram 3D 2021 MM Digital Screening Mammogram 3D 2022 MM Digital Screening Mammogram 3D 2023 MM Digital Screening Mammogram 3D 2020 MM Digital Screening Mammogram 3D 2020 DIAGNOSTIC BILATERAL MAMMOGRAM, W/LT LINO AST ULTRASOUND 10/01/2024 Next Appt Details Provider Name:SERVANDO Hadley, 12/01/2025 03:30:00 PM, [address], [address], [place], [address], Insurance Providers Payer Name Payer Address Payer Phone Subscriber Number Group Number Insured Name Patient Relationship to Insured Coverage Start Date Coverage End Date [facility] [address] [place] [address] [id number] LISY CAGE Self - patient is the [...]
--- OUTSIDE RECORDS SUMMARY | 2025-11-02 19:37 | XMS_ITS | Clinical Summary ---
Author Organization [facility] Address [address] [place] [phone] Phone Care Team Providers Care Television Parts Tester Name Role Phone Sharad Alvarez MD Primary Care Provider [phone] Allergies Active Allergy Reactions Criticality Noted Date [...] Encounters Date Type Department Care Team Description 09/28/2025 Telephone [facility] [address] [facility], [address] [place] [address] Darlene Bond RN from Last 3 Months Family History Medical [...] high school, GED, job training, learning the Lithuanian language, technical skills, or developing parenting skills)? [...] Care Team (Late st Contact Info) Description 12/13/2025 3:00 PM EST Office Visit [facility] [address] [facility], [facility] [address] [place] [address] Annia Cortez MD [address] [place] [address] [address] [email or web address] Maintenance Due Date Last Done Comments Adult Td,Tdap Booster 1970 LIPID PANEL 1970 DEPRESSION SCREENING 1984 HIV ONE-TIME SCREENING (18-65 YEARS) 1990 PAP SMEAR 1993 MAMMOGRAM 2012 COLOGUARD 2017 COLONOSCOPY 2017 COLORECTAL CANCER SCREENING 2017 FIT TEST 2017 FOBT 2017 SIGMOIDOSCOPY 2017 VIRTUAL COLONOSCOPY 2017 RSV VACCINE (1 - Risk 50-74 years 1-dose series) 2022 COVID-19 VACCINE (7 - Pfizer risk 2024- season) 2026 09/10/2025, 09/01/2022, 05/17/2022, Additional history exists SMOKING STATUS SCREENING (Once After 26 Yrs) Completed 07/28/2020 HEPATITIS C SCREENING Completed 08/22/2020 , 08/07/2020, 08/07/2020, Additional history exists PNEUMOCOCCAL VACCINES (50+ years) Completed 06/06/2024, 08/13/2017 ZOSTER VACCINES Completed 09/03/2024, 02/2024, 06/06/2024 INFLUENZA VACCINE Completed 09/10/2025, , 08/20/2024, Additional history exists HEPATITIS A VACCINES Aged Out No long [...] * Outside Hepatitis C Virus Screening (08/22/2020) [facility] Hepatitis C Screening - External Neg Comment:Done at [facility] Ref erence Lab [facility] Provider LAB BLOOD ORDERABLES Tiffanie l Result from Last 3 Months or Most Recently Relevant to Health Maintenance Insurance [facility] PPO [facility] Care Teams Television Parts Tester Relationship Specialty Start Date End Date Sharad Alvarez MD [address] [place] [phone] [email or web address] PCP - General Internal Medicine 04/21/20 Additional Source Comments The information contained in this document represents components of the legal health record. It is not the complete legal health record.[facility]
[2025-11-03 14:58] LABS: Creatinine POC 0.8 mg/dL (0.5-1.4); GFR POC > 60
== END 2025-11-02 14:42 | disposition home or self-care (01) ==
LOC: HO.CT 14:41
PROVIDERS: PCP Internal Medicine; Visit Provider Nurse Practitioner
DX: H53.8 Other visual disturbances (principal); R51.9 Headache, unspecified
CPT/HCPCS: 70496; 82565; Q9967

== ENCOUNTER → 2025-11-02 14:43 | Outpatient (BNV) | payer OTHER, SELFPAY | PROVIDERS: PCP Internal Medicine; Visit Provider Radiology Diagnostic Radiology | DX: R51.9 Headache, unspecified (principal) | CPT/HCPCS: 70496 ==